=== PATIENT | male | born 1950 | race Caucasian/White ===

== ENCOUNTER 2018-11-03 17:39 | Emergency (ER) | payer OTHER, SELFPAY ==
--- NOTE | 2018-11-03 17:54 | DI.RAD.S_ITS ---
PROCEDURE: XR CHEST 1V INDICATIONS: chest pain TECHNIQUE: One view of the chest was acquired. COMPARISON: None. FINDINGS: Surgical changes and devices: None. Lungs and pleura: Left basilar infiltrate suspicious for pneumonia. No pleural effusions or pneumothorax. Mediastinum: Mediastinal contours appear normal. Heart size is normal. Bones and chest wall: No suspicious bony lesions. Overlying soft tissues appear unremarkable. Old right rib fractures are noted. Severe degeneration of the right shoulder. IMPRESSION: Left basilar infiltrate suspicious for pneumonia. Dictated by: Smita Grey M.D. on 11/03/2018 at 18:25 Approved by: Smita Grey M.D. on 11/03/2018 at 18:26
[2018-11-03 18:05] VITALS: BP 147/86; PULSE 69; RESP 18; TEMP 36.6; O2SAT 97; BMI 25.2
[2018-11-03 18:27] VITALS: BP 148/86; PULSE 68; RESP 12; O2SAT 98
--- NOTE | 2018-11-03 18:27 | ED_ITS ---
HPI - Chest Pain General Chief Complaint: Chest Pain Stated Complaint: Chest Pain Time Seen by Provider: 11/03/18 18:27 Source: patient Mode of arrival: ambulatory Limitations: no limitations History of Present Illness HPI narrative: Otherwise healthy 67-year-old male here for evaluation of palpitations. He states that for the past 4 days he has noticed a ?fluttering? sensation left side of his chest. Is not associated with chest pain or shortness of breath or lightheadedness or dizziness. States he has never felt this in the past. He states that it normally happens in the morning but then resolves as the day goes on. He states that today it has gone on throughout the day. Has not tried anything for prior to arrival. Was not having any symptoms at the time of my exam. Related Data Allergies Allergy/AdvReac Type Severity Reaction Status Date / Time No Known Drug Allergies Allergy Verified 11/03/18 18:05 Review of Systems Constitutional Denies fatigue, Denies fever(s) and Denies headache(s) ENT Ears, Nose, Mouth, and Throat: Denies vertigo, Denies dizziness and Denies headache(s) Cardiovascular Denies chest pain, Denies chest pain at rest, Denies chest pain with activity, Denies diaphoresis, Denies rapid heart rate, Denies pedal edema, Denies edema, Denies leg edema, Denies lightheadedness, Denies radiating jaw, neck or arm pain , Reports palpitations, Denies dyspnea and Denies slow heart rate Respiratory Denies dyspnea Gastrointestinal Gastrointestinal: Denies abdominal pain, Denies nausea and Denies vomiting Genitourinary Denies dysuria Musculoskeletal Denies myalgias and Denies arthralgias Integumentary/Breasts Denies lesions and Denies rash Neurologic Denies confusion, Denies vertigo, Denies dizziness and Denies headache(s) Psychiatric Denies confusion Endocrine Denies fatigue and Reports palpitations Hematologic/Lymphatic Comments: Not on anticoagulation PFSH Medical History Healthy adult (Acute) Surgical History No pertinent past surgical history (Acute) Social History Smoking Status: Never smoker Exam Initial Vital Signs Initial Vital Signs: Vital Signs Temperature 97.9 F 11/03/18 18:05 Pulse Rate 69 11/03/18 18:05 Respiratory Rate 18 11/03/18 18:05 Blood Pressure 147/86 H 11/03/18 18:05 Pulse Oximetry 97 11/03/18 18:05 Const General: cooperative, healthy appearing, comfortable, well developed, well groomed and No acute distress Orientation: alert, awake and oriented x3 HENMT Head: normal to inspection and normocephalic Resp Effort & Inspection: normal respiratory effort Auscultation: clear to auscultation bilaterally Cardio Rate: regular rate Rhythm: regular rhythm Heart Sounds: no murmurs Pulses: radial pulses present GI Inspection: non-distended Palpation: soft, No firm and No tender Skin Lesions: no lesions Rashes: no rashes Neuro General: alert, awake and oriented x3 Extrem General: normal to inspection and capillary refill normal Psych Appearance: grossly normal and well kempt Scores HEART Score Heart Score history: Slightly Suspicious Heart Score EKG: Normal Heart Score Age: > or = 65 years old Heart Score risk factors: No known risk factors Heart Score troponin: < or = to normal limit Heart Score Total: 2 Course Orders Ordered: ED Orders 11/03/18 17:54 XR chest 1V Stat EKG-12 Lead Stat 11/03/18 18:20 Complete Blood Count AUTO DIFF Stat Comprehensive Metabolic Panel Stat Lipase Stat Partial Thromboplastin Time Stat Prothrombin Time INR Stat Troponin & CK Cardiac Panel Stat Vital Signs - 8 hr 11/03/18 18:05 11/03/18 18:27 11/03/18 19:00 Temperature 97.9 F Pulse Rate 69 68 69 Respiratory Rate 18 12 14 Blood Pressure 147/86 H Blood Pressure [Left Arm] 148/86 H 153/93 H Pulse Oximetry 97 98 98 11/03/18 19:30 Temperature Pulse Rate 66 Respiratory Rate 14 Blood Pressure Blood Pressure [Left Arm] 136/88 Pulse Oximetry 98 MDM - Chest Pain Lab Data Attestation: I reviewed the patient's lab results. Result diagrams: 11/03/18 18:20 11/03/18 18:20 Lab Results 11/03/18 11/03/18 11/03/18 Range/Units 18:20 18:20 18:20 WBC 7.8 (4.5-11.0) X10^3/uL RBC 4.67 (4.5-5.9) X10^6/uL Hgb 14.4 (13.5-17.5) g/dL Hct 42.5 (41-53) % MCV 90.9 (80-100) fL MCH 30.7 (26-34) PG MCHC 33.8 (30-36) % RDW 14.0 (11.6-14.8) % Plt Count 309 (150-400) X10^3/uL Neut % (Auto) 41.8 L (50-75) % Lymph % (Auto) 40.3 H (25-40) % [place] % (Auto) 11.6 (3-14) % Eos % (Auto) 4.2 H (2-4) % Baso % (Auto) 2.1 H (0-2) % Neut # (Auto) 3300 (6499-1505) /uL PT 11.2 (10.1-12.7) SECONDS INR 1.0 (0.9-1.3) APTT 26 L (26.4-36.2) SECONDS Sodium 144 (137-145) mmol/L Potassium 3.9 (3.4-5.1) mmol/L Chloride 107 (98-107) mmol/L Carbon Dioxide 24 (22-32) mmol/L BUN 19 (9-20) mg/dL Creatinine 0.80 (0.66-1.25) mg/dL Estimated GFR > 60.0 (>60) mL/min BUN/Creatinine Ratio 23.8 H (6-22) Glucose 100 (80-110) mg/dL Calcium 9.5 (8.4-10.2) mg/dL Total Bilirubin 0.2 (0.2-1.3) mg/dL AST 32 (17-59) IU/L ALT 36 (21-72) IU/L Alkaline Phosphatase 53 (38-126) U/L Total Creatine Kinase 101 (55-170) U/L CK-MB (CK-2) 1.65 (<2.37) ng/mL CK-MB (CK-2) Rel Index 1.6 (1.5-5.0) % Troponin I < 0.012 (0.01-0.034) ng/mL Total Protein 7.3 (6.3-8.2) g/dL Albumin 4.3 (3.5-5.0) g/dL Globulin 3.0 (1.7-4.1) g/dL Albumin/Globulin Ratio 1.4 (1.0-2.8) Lipase 83 (23-300) U/L Imaging Data Chest x-ray: Radiologist's impression: [address] [address] XRay Report Signed Patient: Olaf Mandujano MR#: [id number] : 1950 Acct:[id number] Age/Sex: 67 / M Date of Service: 11/03/18 Loc: ED Accession Number: [id number] Procedure: XR chest 1V Ordering Provider: Kanika Bernal D.O. PROCEDURE: XR CHEST 1V INDICATIONS: chest pain TECHNIQUE: One view of the chest was acquired. COMPARISON: None. FINDINGS: Surgical changes and devices: None. Lungs and pleura: Left basilar infiltrate suspicious for pneumonia. No pleural effusions or pneumothorax. Mediastinum: Mediastinal contours appear normal. Heart size is normal. Bones and chest wall: No suspicious bony lesions. Overlying soft tissues appear unremarkable. Old right rib fractures are noted. Severe degeneration of the right shoulder. IMPRESSION: Left basilar infiltrate suspicious for pneumonia. Dictated by: Smita Grey M.D. on 11/03/2018 at 18:25 Approved by: Smita Grey M.D. on 11/03/2018 at 18:26 ECG Data Attestation: I personally reviewed and interpreted this ECG as follows: Prior ECG tracings: not available for review Interpretation: Sinus rhythm Ventricular rate is 72 Normal QRS Normal QTC Normal axis Occasional PVC MDM Narrative Medical decision making narrative: Patient was not having symptoms at the time of my evaluation. He states that he did have the symptoms when they did the EKG. The EKG does show PVCs. Patient is low risk for ACS with a heart score 2. Chest x-ray shows possibility of lower lobe pneumonia however clinically does not have pneumonia. He is afebrile. Is not coughing. Has clear lung exam. Will hold on any antibiotics for now. I do suspect that his symptoms are related to the PVCs. We did discuss return precautions. He expressed understanding and agreement with plan. Discharge Plan Departure Patient Disposition: Home Clinical Impression: Palpitations, PVC (premature ventricular contraction) Discharge Date/Time: 11/03/18 19:52 Interventions: ED Discharge Assessment Last Done: 11/03/18 19:51 Instructions: Premature Ventricular Beats, DI for Palpitations Activity Restrictions/Additional Instructions: Recommend that you follow up with your primary care doctor. Return to the emergency department for any new symptoms, palpitations are associated with chest pain, lightheadedness, shortness of breath.
[2018-11-03 18:33] LABS: Add Manual Diff / Slide Review NO; Basophils Percent Auto 2.1 % (0-2); Eosinophils Percent Auto 4.2 % (2-4); Hematocrit 42.5 % (41-53); Hemoglobin 14.4 g/dL (13.5-17.5); Lymphocytes Percent Auto 40.3 % (25-40); Mean Corpuscular HGB Conc 33.8 % (30-36); Mean Corpuscular Hemoglobin 30.7 PG (26-34); Mean Corpuscular Volume 90.9 fL (80-100); Monocytes Percent Auto 11.6 % (3-14); Neutrophils Absolute Auto 3300 /uL (1500-7000); Neutrophils Percent Auto 41.8 % (50-75); Platelet Count 309 X10^3/uL (150-400); Red Blood Cell Count 4.67 X10^6/uL (4.5-5.9); White Blood Cell Count 7.8 X10^3/uL (4.5-11.0)
[2018-11-03 18:39] LABS: Prothrombin Time 11.2 SECONDS (10.1-12.7)
[2018-11-03 18:42] LABS: PTT Partial Thromboplastin Tim 26 SECONDS (26.4-36.2)
[2018-11-03 18:44] LABS: Alanine Aminotransferase 36 IU/L (21-72); Albumin 4.3 g/dL (3.5-5.0); Albumin Globulin Ratio 1.4 (1.0-2.8); Alkaline Phosphatase 53 U/L (38-126); Aspartate Aminotransferase 32 IU/L (17-59); BUN Creatinine Ratio 23.8 (6-22); Bilirubin Total 0.2 mg/dL (0.2-1.3); Blood Urea Nitrogen 19 mg/dL (9-20); Calcium 9.5 mg/dL (8.4-10.2); Carbon Dioxide 24 mmol/L (22-32); Chloride 107 mmol/L (98-107); Creatine Kinase 101 U/L (55-170); Estimated Glomerular Filt Rate > 60.0 mL/min (>60); Glucose 100 mg/dL (80-110); HEMOLYSIS 21 (0-50); Lipase 83 U/L (23-300); Potassium 3.9 mmol/L (3.4-5.1); Sodium 144 mmol/L (137-145); Total Protein 7.3 g/dL (6.3-8.2)
[2018-11-03 18:59] LABS: CKMB % Relative Index 1.6 % (1.5-5.0); Creatine Kinase MB 1.65 ng/mL (<2.37)
[2018-11-03 19:00] VITALS: BP 153/93; PULSE 69; RESP 14; O2SAT 98
[2018-11-03 19:05] LABS: Troponin I < 0.012 ng/mL (0.01-0.034)
[2018-11-03 19:30] VITALS: BP 136/88; PULSE 66; RESP 14; O2SAT 98
== END 2018-11-03 19:52 | disposition home or self-care (01) ==
PROVIDERS: Emergency Medicine; Emergency Provider Emergency Medicine
DX: I49.3 Ventricular premature depolarization (principal); R00.2 Palpitations
CPT/HCPCS: 36591; 71045; 80053; 82550; 82553; 83690; 84484; 85025; 85610; 85730; 93005; 99283; 99285

== ENCOUNTER 2020-03-26 14:31 | Emergency (ER) | payer OTHER, SELFPAY ==
--- NOTE | 2020-03-26 14:38 | DI.RAD.S_ITS ---
PROCEDURE: XR CHEST 1V INDICATIONS: chest pain TECHNIQUE: One view of the chest was acquired. COMPARISON: [facility], CR, XR CHEST 1V, 11/03/2018, 18:25. FINDINGS: Surgical changes and devices: None. Lungs and pleura: Lungs are clear. No pleural effusions or pneumothorax. Mediastinum: Mediastinal contours appear normal. Heart size is normal. Bones and chest wall: No suspicious bony lesions. Overlying soft tissues appear unremarkable. IMPRESSION: No change from prior study in October of 2018, source of new chest pain is not found. Dictated by: Miller Wright M.D. on 03/26/2020 at 15:35 Approved by: Miller Wright M.D. on 03/26/2020 at 15:36
[2020-03-26 14:39] VITALS: BP 154/80; PULSE 58; RESP 16; TEMP 36.5; O2SAT 99
[2020-03-26 15:00] LABS: Add Manual Diff / Slide Review NO; Basophils Absolute Auto 100 /uL (0-100); Basophils Percent Auto 1.2 % (0-2); Eosinophils Absolute Auto 300 /uL (0-450); Eosinophils Percent Auto 3.7 % (2-4); Hematocrit 42.8 % (41-53); Hemoglobin 14.5 g/dL (13.5-17.5); Lymphocytes Absolute Auto 2800 /uL (1100-4500); Lymphocytes Percent Auto 37.8 % (25-40); Mean Corpuscular Volume 91.4 fL (80-100); Monocytes Absolute Auto 800 /uL (0-900); Monocytes Percent Auto 11.2 % (3-14); Neutrophils Absolute Auto 3400 /uL (1500-7000); Neutrophils Percent Auto 46.1 % (50-75); Platelet Count 301 X10^3/uL (150-400); Red Blood Cell Count 4.68 X10^6/uL (4.5-5.9); Red Cell Distribution Width 14.1 % (11.6-14.8); White Blood Cell Count 7.3 X10^3/uL (4.5-11.0)
[2020-03-26 15:01] VITALS: BP 154/80; PULSE 57; RESP 14; O2SAT 98
[2020-03-26 15:07] LABS: Alanine Aminotransferase 20 IU/L (<50); Albumin 4.5 g/dL (3.5-5.0); Albumin Globulin Ratio 1.5 (1.0-2.8); Alkaline Phosphatase 51 U/L (38-126); Aspartate Aminotransferase 26 IU/L (17-59); BUN Creatinine Ratio 23.7 (6-22); Bilirubin Total 0.4 mg/dL (0.2-1.3); Blood Urea Nitrogen 18 mg/dL (9-20); Calcium 9.6 mg/dL (8.4-10.2); Carbon Dioxide 24 mmol/L (22-32); Chloride 106 mmol/L (98-107); Creatine Kinase 56 U/L (55-170); Estimated Glomerular Filt Rate > 60.0 mL/min (>60); Globulin 3.1 g/dL (1.7-4.1); Glucose 92 mg/dL (80-110); HEMOLYSIS < 15 (0-50); Lipase 97 U/L (23-300); Potassium 4.5 mmol/L (3.4-5.1); Sodium 139 mmol/L (137-145); Total Protein 7.6 g/dL (6.3-8.2)
[2020-03-26 15:18] LABS: Troponin I < 0.012 ng/mL (0.01-0.034)
--- NOTE | 2020-03-26 15:24 | ED.CHESTPAIN ---
HPI - Chest Pain General Chief Complaint: Chest Pain Stated Complaint: Sent over by his DRRoberto Having tightness in chest Time Seen by Provider: 03/26/20 15:00 Source: patient Mode of arrival: Ambulatory Limitations: no limitations History of Present Illness HPI narrative: This is a 69-year-old male comes in with complaint of chest pressure/tightness. He has had symptoms 2 months also for the last couple weeks. He states he has not had any shortness of breath. He states when he exercises which includes going up hills and fairly intensive exercise he did not have any issue he has not any diaphoresis with these episodes. No fevers, no chills. He has felt nauseated at times and had some mild headache. He denies any vomiting. He denies any cough. He has had some mild nasal congestion which he describes as seasonal allergies. Patient has not had any swelling in his extremities. He states episodes tended her towards the end of the day, they get better as the night goes away when he takes his normal for panel all in the evening this seems to help. He did note that movement of his upper extremities or pushing on his chest makes it worse, he states that it does seem to sometimes radiate towards the left shoulder more. It does not go to his back or neck, no abdominal pain. He states symptoms will typically last for several hours, nothing seems to make it better or worse when it is present. He states he has been remodeling his house and started doing a pushup regimen in the last couple weeks. He does take a supplement for cholesterol with the red yeast rice as well as propranolol on aspirin 81 mg daily. He has had history of a pneumothorax, cholecystectomy and knee surgery. His stress test urine half ago with his semiconductors wafer breaker which was negative follows with his primary care. No tobacco, occasional alcohol no illicit. He contacted his primary care who told him to talk to his semiconductors wafer breaker he contacted them via phone who told him to come to the ER. Related Data Allergies Allergy/AdvReac Type Severity Reaction Status Date / Time No Known Drug Allergies Allergy Verified 11/03/18 18:05 Review of Systems Review of Systems ROS Unobtainable: All systems reviewed & are unremarkable except as noted in HPI and below Patient History Medical History (Updated 03/26/20 @ 15:43 by Kanika Bernal DO) Dyslipidemia (Acute) Healthy adult (Acute) Hypertension (Acute) Pneumothorax (Acute) Surgical History (Updated 03/26/20 @ 15:39 by Kanika Bernal DO) H/O knee surgery (Acute) Hx of cholecystectomy (Acute) No pertinent past surgical history (Acute) Social History Smoking Status: Never smoker Smoking Status: Never smoker alcohol intake frequency: a few times a week Substance Use Type: does not use Exam Narrative Exam Narrative: GENERAL: Alert and oriented x three, well-nourished male in no acute distress. HEENT: Head normocephalic, atraumatic, EOMI, pupils reactive, face symmetric, moist mucous membranes NECK: Supple, full range of motion CARDIOVASCULAR: Regular rate and rhythm without murmurs, rubs or gallops. Patient's chest pain is reproducible with palpation. No rash, skin changes or swelling. No ecchymosis. RESPIRATORY: Breath sounds equal bilaterally, no wheezes rales or rhonchi. ABDOMEN: Soft, nontender. Normoactive bowel sounds all 4 quadrants. No guarding or rebound, rigidity, no mass : No CVA tenderness EXTREMITIES: Normal range of motion, no clubbing or edema. Neurovascularly intact NEUROLOGICAL: Cranial nerves II through XII grossly intact. Moving all extremities SKIN: Warm, dry, no petechiae, no rashes or lesions. Initial Vital Signs Initial Vital Signs: Vital Signs Temperature 97.7 F 03/26/20 14:39 Pulse Rate 58 L 03/26/20 14:39 Respiratory Rate 16 03/26/20 14:39 Blood Pressure 154/80 H 03/26/20 14:39 Pulse Oximetry 99 03/26/20 14:39 Scores HEART Score Heart Score history: Slightly Suspicious Heart Score EKG: Normal Heart Score Age: > or = 65 years old Heart Score risk factors: 1-2 risk factors Heart Score troponin: < or = to normal limit Heart Score Total: 3 Course Orders Ordered: Discontinued Medications Aspirin (Aspirin Chew) 324 mg PO NOW ONE Stop: 03/26/20 14:39 Last Admin: 03/26/20 15:52 Dose: Not Given Documented by: MEDARDO Aspirin (Aspirin Chew) 234 mg PO NOW ONE Stop: 03/26/20 15:44 Last Admin: 03/26/20 17:00 Dose: 234 mg Documented by: KISHORE Vital Signs Vital signs: Vital Signs - 8 hr 03/26/20 14:39 03/26/20 15:01 03/26/20 15:34 Temperature 97.7 F Pulse Rate 58 L 57 L 56 L Respiratory Rate 16 14 12 Blood Pressure 154/80 H Blood Pressure [Right Arm] 154/80 H 139/78 Pulse Oximetry 99 98 97 03/26/20 16:00 Temperature Pulse Rate 55 L Respiratory Rate 12 Blood Pressure Blood Pressure [Right Arm] 117/76 Pulse Oximetry 96 MDM - Chest Pain Lab Data Attestation: I reviewed the patient's lab results. Result diagrams: 03/26/20 14:48 03/26/20 14:48 Labs: Lab Results 03/26/20 03/26/20 Range/Units 14:48 14:48 WBC 7.3 (4.5-11.0) X10^3/uL RBC 4.68 (4.5-5.9) X10^6/uL Hgb 14.5 (13.5-17.5) g/dL Hct 42.8 (41-53) % MCV 91.4 (80-100) fL MCH 31.0 (26-34) PG MCHC 34.0 (30-36) % RDW 14.1 (11.6-14.8) % Plt Count 301 (150-400) X10^3/uL Neut % (Auto) 46.1 L (50-75) % Lymph % (Auto) 37.8 (25-40) % [place] % (Auto) 11.2 (3-14) % Eos % (Auto) 3.7 (2-4) % Baso % (Auto) 1.2 (0-2) % Neut # (Auto) 3400 (4329-7407) /uL Lymph # (Auto) 2800 (9262-7905) /uL [place] # (Auto) 800 (0-900) /uL Eos # (Auto) 300 (0-450) /uL Baso # (Auto) 100 (0-100) /uL Sodium 139 (137-145) mmol/L Potassium 4.5 (3.4-5.1) mmol/L Chloride 106 (98-107) mmol/L Carbon Dioxide 24 (22-32) mmol/L BUN 18 (9-20) mg/dL Creatinine 0.76 (0.66-1.25) mg/dL Estimated GFR > 60.0 (>60) mL/min BUN/Creatinine Ratio 23.7 H (6-22) Glucose 92 (80-110) mg/dL Calcium 9.6 (8.4-10.2) mg/dL Total Bilirubin 0.4 (0.2-1.3) mg/dL AST 26 (17-59) IU/L ALT 20 (<50) IU/L Alkaline Phosphatase 51 (38-126) U/L Total Creatine Kinase 56 (55-170) U/L CK-MB (CK-2) TNP CK-MB (CK-2) Rel Index TNP Troponin I < 0.012 (0.01-0.034) ng/mL Total Protein 7.6 (6.3-8.2) g/dL Albumin 4.5 (3.5-5.0) g/dL Globulin 3.1 (1.7-4.1) g/dL Albumin/Globulin Ratio 1.5 (1.0-2.8) Lipase 97 (23-300) U/L Imaging Data Chest x-ray: Radiologist's Impression: [address] [address] XRay Report Signed Patient: Olaf Mandujano EMR#: [id number] : 1950cct:[id number] Age/Sex: 69 / MDate of Service: 03/26/20 Loc: ED Accession Number: [id number] Procedure: XR chest 1V Ordering Provider: Kanika Bernal D.O. PROCEDURE: XR CHEST 1V INDICATIONS: chest pain TECHNIQUE: One view of the chest was acquired. COMPARISON: Merged With [facility], , XR CHEST 1V, 11/03/2018, 18:25. FINDINGS: Surgical changes and devices: None. Lungs and pleura: Lungs are clear. No pleural effusions or pneumothorax. Mediastinum: Mediastinal contours appear normal. Heart size is normal. Bones and chest wall: No suspicious bony lesions. Overlying soft tissues appear unremarkable. IMPRESSION: No change from prior study in October of 2018, source of new chest pain is not found. Dictated by: Miller Wright M.D. on 03/26/2020 at 15:35 Approved by: Miller Wright M.D. on 03/26/2020 at 15:36 ECG Data Attestation: I personally reviewed and interpreted this ECG as follows: Prior ECG tracings: available for review Interpretation: This is a bradycardia rate of 58 NM 177 QRS of 94 and QTC of 430. No ST elevation/depression noted. Patient has prior EKG from 01/04/2018 which appears similar MDM Narrative Medical decision making narrative: Patient comes in with complaint of chest pressure/tightness which is been going on for couple weeks. He does relate that he recently started remodeling his house and doing a pushup regimen that palpation and movement do seem to worsen it he has noticed that it does seem to be more frequent in the end of the evening but states there is some radiation seems to be a little bit towards his left arm. He denies any shortness of breath, diaphoresis but has had nausea but not specifically linked to the chest pressure. He does follow with a semiconductors wafer breaker through [place] and has had a stress test urine a half ago. He does have some risk factors with dyslipidemia and hypertension. Discussed with patient and he was offered observation but defers today and plans for follow-up with semiconductors wafer breaker for possible stress testing. Discussed risks vs. benefits and that we cannot rule out a cardiac cause. We discussed they are doing outpatient stress testing locally I am unclear if they are at [facility] with the current pandemic but would suggest patient to get eval and stress testing. Patient's heart score is 3. He has some components of his symptoms that seem more musculoskeletal but does have some risk factors from a cardiac perspective. Discharge Plan Departure Patient Disposition: Home Clinical Impression: Chest pain Discharge Date/Time: 03/26/20 17:08 Instructions: DI for Atypical Chest Pain Activity Restrictions/Additional Instructions: Follow-up with your semiconductors wafer breaker, call for an appointment you may discuss over the phone they may wish to order outpatient stress testing either at [place] if available or locally. Continue home medications as prescribed. Return to the ER for fevers, new shortness of breath, chest pain or pressure continues, worsens or changes, lightheadedness or passing out, persistent vomiting, swelling of her extremities or other new or concerning symptoms
[2020-03-26 15:34] VITALS: BP 139/78; PULSE 56; RESP 12; O2SAT 97
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
[2020-03-26 16:00] VITALS: BP 117/76; PULSE 55; RESP 12; O2SAT 96
[2020-03-26 16:30] VITALS: BP 136/79; PULSE 53; RESP 13; O2SAT 98
[2020-03-26] MEDS: ASPIRIN 81 MG CHEW TAB 234 MG PO (17:00)
[2020-03-26 17:03] VITALS: BP 134/79; PULSE 54; RESP 14; O2SAT 98
== END 2020-03-26 17:08 | disposition home or self-care (01) ==
PROVIDERS: Emergency Provider Emergency Medicine
DX: R07.9 Chest pain, unspecified (principal); R00.1 Bradycardia, unspecified
CPT/HCPCS: 36415; 71045; 80053; 82550; 83690; 84484; 85025; 93005; 99284

== ENCOUNTER → 2021-01-26 09:24 | Outpatient (CLI) | payer MEDICARE, SELFPAY ==
[2021-01-26 11:24] LABS: COVID19 -Nasal RAPID Negative (Negative)
== END ==
PROVIDERS: Visit Provider Surgery
DX: Z20.822 Contact with and (suspected) exposure to COVID-19 (principal)
CPT/HCPCS: 87635; C9803

== ENCOUNTER 2021-01-27 06:42 | Day surgery (SDC) | payer MEDICARE, SELFPAY ==
[2021-01-27] VITALS (11 sets, daily range): BP systolic 100–124; BP diastolic 53–78; PULSE 51–57; RESP 10–17; TEMP 36.4–37; O2SAT 93–98; BMI 25.4
[2021-01-27] MEDS: SODIUM CHLORIDE 0.9% 1,000 ML 200 ML IV (07:30)
--- NOTE | 2021-01-27 08:10 | PM.HP.1 ---
History of Present Illness History of Present Illness Date Patient Seen: 01/27/21 Time Patient Seen: 08:10 Chief complaint: SDC Narrative: This is a 70-year-old man with personal history of colon polyps, and a family history of colon cancer in a secondary relative. He has had polyps found on several previous colonoscopies. His most recent was about 3 years ago, and he believes that a polyp was found but was considered low-grade at that time and was recommended to have a repeat colonoscopy in 3 years. He denies any melena, hematochezia, unexplained abdominal pain, unexplained weight loss. ROS positive for irregular heartbeat, sinus drainage, arthritis, reflux, prostatitis, vertigo. Thirteen system review is otherwise negative other than as mentioned below and in HPI. PE: GENERAL: Well groomed and cooperative. Appears stated age. Answers questions promptly and appropriately. Vital signs noted. HENT: Normocephalic, atraumatic. Hearing intact. EYES: Conjunctiva pink, sclera white, no periorbital swelling. CARDIOVASCULAR: Regular rate. No pedal edema. RESPIRATORY: Non-tachypneic, breathing comfortably on room air. GASTROINTESTINAL: Abdomen soft and non-distended GENITALURINARY: No flank tenderness. MUSCULOSKELETAL: Equal tone and mass bilaterally. SKIN: Warm, dry, soft, appropriate color for ethnicity. No other lesions, rashes, or wounds. NEURO: Alert and Oriented X 3. No gross sensory deficits, or cognitive issues. PSYCH: Appropriate affect and mood. Patient History Medical History Dyslipidemia Healthy adult Hypertension Pneumothorax Surgical History H/O knee surgery Hx of cholecystectomy No pertinent past surgical history Family & Social History Social History: household members spouse Tobacco & Substance use: Smoking Status Never smoker alcohol intake frequency a few times a week Substance Use Type does not use Meds Home Medications and Allergies Home Medications Medication Instructions Recorded Confirmed Type sodium,potassium,mag sulfates 17.5 177 ml PO DAILY #354 ml 12/22/20 01/27/21 Rx gram-3.13 gram-1.6 gram oral soln albuterol 1 mcg INHALATION DAILY 01/27/21 01/27/21 History aspirin 81 mg PO DAILY 01/27/21 01/27/21 History carisoprodol 350 mg PO DAILY 01/27/21 01/27/21 History fluticasone propionate [Flonase] 1 spray INTRANASAL DAILY 01/27/21 01/27/21 History loratadine [Claritin] 10 mg PO DAILY PRN 01/27/21 01/27/21 History meloxicam 15 mg PO DAILY 01/27/21 01/27/21 History omeprazole magnesium [Prilosec OTC] 20 mg PO DAILY 01/27/21 01/27/21 History propranolol 60 mg PO DAILY 01/27/21 01/27/21 History Allergies Allergy/AdvReac Type Severity Reaction Status Date / Time latex AdvReac Mild Rash Verified 01/27/21 07:34 Exam Vital Signs (past 8 hours): - 01/27/21 07:12 Temperature 97.8 F Pulse Rate 56 L Respiratory Rate 16 Blood Pressure 124/75 Pulse Oximetry 97 Oxygen Delivery Method Room Air Assessment & Plan Assessment and plan (1) Personal history of colonic polyps: Status: Acute Assessment & Plan narrative: Risks and benefits of screening colonoscopy and possible polypectomy were discussed with the patient including risk of bleeding, perforation, need for additional procedures, risks of anesthesia. The patient desires to proceed with the colonoscopy procedure. COVID-19 COVID-19 status: Negative Result date/Date tested (Pos, Neg/Pending): 01/26/21 Time Spent With Patient Time with patient: 15-24 minutes Quality VTE Deep Vein Thrombosis/Pulmonary Embolism Present on Admission: No
--- NOTE | 2021-01-27 08:15 | P.OP.ENDO_ITS ---
Operative Date/Time/Diagnoses Date of procedure: 01/27/21 Time of procedure: 08:15 Pre-op diagnosis: Personal history of colon polyps, due for surveillance Procedure & Clinicians Study performed: Colonoscopy Procedural sedation performed by the endoscopist Same procedure as scheduled: Yes Indications: Personal history of colon polyps, due for surveillance colonoscopy Surgeon: Chiara Murray Procedure Notes SCOAP/Timeout: Performed Procedure in detail: The patient was brought to the room and placed in left lateral decubitus position with all bony prominences padded. A time-out was performed and then the patient was given procedural sedation starting with [4] mg of Versed and [100] mcg of fentanyl. Vitals were monitored throughout the procedure and remained stable. Once adequately sedated, the procedure was begun. A rectal exam was performed revealing [no abnormalities]. The colonoscope was then introduced to the rectum and advanced to the cecum in the usual fashion. []The cecum was identified by the appendiceal orifice, the muco yovana tri-fold, and the ileocecal valve. The scope was then retracted while rotating side to side and examining each mucosal fold. No abnormalities were seen in the colon. No polyps. No evidence of diverticulosis was seen. [] At the conclusion of the procedure retroflexion was performed and [small grade 2-3 internal hemorrhoids without stigmata of bleeding were seen]. The scope was then withdrawn from the rectum the procedure was concluded. The patient tolerated the procedure well and was transferred to the PACU in stable condition. Scope withdrawal time: 8 Sedation minutes: 15 Findings: internal hemorrhoids Specimen(s): none sent Complications: none Impression: No polyps Post-procedure Recommendations: Colonscopy in 5 years (Due to personal history of polyps, and family history) Follow up: as needed Disposition: PACU
[2021-01-27] MEDS: fentaNYL 250 MCG/5 ML INJ IV (08:16)
[2021-01-27] MEDS: MIDAZOLAM 5 MG/5 ML VIAL IV (08:16)
== END 2021-01-27 09:40 | disposition home or self-care (01) ==
PROVIDERS: Referring Provider Surgery; Visit Provider Surgery
PROC: 0DJD8ZZ Inspection of Lower Intestinal Tract, Via Natural or Artificial Opening Endoscopic (ICD-10-PCS; CPT 45378; principal; 2021-01-27 07:45)
DX: Z12.11 Encounter for screening for malignant neoplasm of colon (principal); Z86.010 Personal history of colon polyps; I10 Essential (primary) hypertension; E78.5 Hyperlipidemia, unspecified; K64.1 Second degree hemorrhoids
CPT/HCPCS: G0105; 99152; J2250; J3010

== ENCOUNTER → 2022-03-02 11:57 | Outpatient (CLI) | payer MEDICARE, SELFPAY ==
--- NOTE | 2022-03-02 | DI.CT.S_ITS ---
PROCEDURE: CT SINUS SCREEN WO CON INDICATIONS: Chronic maxillary sinusitis TECHNIQUE: Noncontrast 3.0 mm axial images acquired from the frontal sinuses to the mid-sella, with coronal and sagittal reformats. For radiation dose reduction, the following was used: automated exposure control, adjustment of mA and/or kV according to patient size. COMPARISON: None. FINDINGS: Image quality: Excellent. Maxillary Sinuses: Moderate mucosal thickening is seen within the inferior right maxillary sinus. Minimal mucosal thickening is seen within the inferior left maxillary sinus. Mild demineralization can be seen of the medial kurtz of the maxillary sinuses. Ethmoid Air Cells: No bony remodeling or destruction. Sinuses are clear. Sphenoid Sinuses: No bony remodeling or destruction. Sinuses are clear. Frontal Sinuses: No bony remodeling or destruction. Sinuses are clear. Ostiomeatal Complexes: Ostiomeatal complexes are patent. No Kathy cells. Miscellaneous: Visualized intra-orbital contents are normal. No rich bullosa or paradoxical turbinate curvature. There is mild rightward nasal septal deviation. IMPRESSION: Focal maxillary sinus disease is seen, right worse than left. There is demineralization of the medial kurtz of the maxillary sinuses, which is consistent with chronic sinusitis. Dictated by: Ricky Dye M.D. on 03/02/2022 at 11:38 Approved by: Ricky Dye M.D. on 03/02/2022 at 11:39
== END ==
PROVIDERS: Referring Provider Otolaryngology; Visit Provider Otolaryngology
DX: J32.0 Chronic maxillary sinusitis (principal)
CPT/HCPCS: 70486

== ENCOUNTER → 2023-03-09 16:10 | Outpatient (CLI) | payer MEDICARE, SELFPAY ==
--- NOTE | 2023-03-09 16:12 | DI.MRI.S_ITS ---
PROCEDURE: MR LUMBAR SPINE WO CON INDICATIONS: Spinal stenosis, lumbar region TECHNIQUE: Noncontrast sagittal T1 spin echo and T2 fast echo, sagittal STIR, and T2 fast spin echo through the lumbar spine. In cases with scoliosis, additional coronal T2 fast spin echo may be performed. COMPARISON: [facility], CR, XR LUMBAR SPINE 2 OR 3 VIEWS, 08/11/2020, 15:00. [facility] [place], CR, XR LUMBAR SPINE WITH OBLIQUES PLUS FLEXION EXTENSION, 03/01/2023, 14:07. FINDINGS: Image quality: Diagnostic, with note made of motion artifact. Alignment and Curvature: Mild levoconvex scoliotic curvature is noted. No focal AP alignment abnormality is seen. Bone Marrow: Marrow is of normal overall signal. No acute vertebral body compression fractures. Spinal Cord: Conus medullaris terminates at the T12-L1 level. Visualized cord demonstrates normal signal and size. Paraspinous Soft Tissues: No paravertebral masses. An apparent 1.5 cm simple cyst can be seen along the medial aspect of the superior pole of the right kidney. T12-L1: Normal appearance. L1-L2: Hmuy-tf-psmrsysn loss of disc height and disc signal can be seen. Mild generalized disc bulge is seen. There is a superimposed central disc protrusion. There is a focal annular fissure seen posteriorly. Mild central canal narrowing is seen. L2-L3: The disc height is well-preserved. Loss of disc signal is seen at this level. Moderate generalized disc bulge is seen. There is a superimposed central disc protrusion. Mild facet joint hypertrophy is seen. Moderate bilateral neural foraminal narrowing is seen. Moderate central canal narrowing is seen. L3-L4: The disc height is well-preserved. Loss of disc signal is seen at this level. Moderate generalized disc bulge is seen. There is a superimposed central disc protrusion. Moderate facet joint hypertrophy is seen. Associated hypertrophy of the ligamentum flavum can be seen. At least moderate bilateral neural foraminal narrowing is seen. There is a minimal degree of compression seen upon the exiting L3 nerve roots. Moderate central canal narrowing is seen. L4-L5: The disc height is well-preserved. Loss of disc signal is seen at this level. Moderate facet joint hypertrophy is seen. Associated hypertrophy of the ligamentum flavum can be seen. There is moderate to severe bilateral neural foraminal narrowing seen, with an associated a degree of compression seen upon the exiting nerve roots. Moderate to severe central canal narrowing is seen, as on series 5, image 28. L5-S1: The disc height and disk signal are relatively well-preserved. Mild to moderate disc bulge is seen, which is eccentric to the right. Mild facet joint hypertrophy is seen. Moderate bilateral neural foraminal narrowing is seen. Mild central canal narrowing is seen. IMPRESSION: Multiple levels of lumbar spine degenerative change can be seen, which are overall worst at the L4-L5 level. Dictated by: Ricky Dye M.D. on 03/09/2023 at 16:50 Approved by: Ricky Dye M.D. on 03/09/2023 at 16:54
== END ==
PROVIDERS: Referring Provider Physical Medicine & Rehabilitation Pain Medicine; Visit Provider Physical Medicine & Rehabilitation Pain Medicine
DX: M48.062 Spinal stenosis, lumbar region with neurogenic claudication (principal); M47.816 Spondylosis without myelopathy or radiculopathy, lumbar region; M47.817 Spondylosis without myelopathy or radiculopathy, lumbosacral region
CPT/HCPCS: 72148

== ENCOUNTER 2023-10-19 07:56 | Emergency (ER) | payer MEDICARE, SELFPAY ==
[2023-10-19 07:59] VITALS: BP 102/65; PULSE 86; RESP 18; TEMP 36.6; O2SAT 95; BMI 24.5
--- NOTE | 2023-10-19 07:59 | ED.ABDPAIN ---
HPI - Abdominal Pain General Chief Complaint: Abdominal Pain Stated Complaint: possible appendicitis Time Seen by Provider: 10/19/23 07:59 History of Present Illness HPI narrative: 72-year-old male nonsmoker with a history of hypertension presents for evaluation of right lower quadrant pain. He states that he has been generally declining over the past day or 2 and had some generalized abdominal discomfort yesterday but since then the pain has settled into his right lower quadrant. He states the pain seems to come and go and there is no obvious provocation, palliation or radiation. In fact, he denies any pain currently but does state he has a poor appetite. He is had some loose stools over that time frame which is abnormal for him. He denies any urinary complaints such as dysuria, frequency or urgency. Related Data Home Medications Medication Instructions Recorded Confirmed aspirin 81 mg tablet 81 mg PO DAILY 01/27/21 10/18/23 carisoprodol 350 mg tablet 350 mg PO DAILY 01/27/21 10/18/23 meloxicam 15 mg tablet 15 mg PO DAILY 01/27/21 10/18/23 propranolol 60 mg tablet 60 mg PO DAILY 01/27/21 10/18/23 Allergies Allergy/AdvReac Type Severity Reaction Status Date / Time latex AdvReac Mild Rash Verified 10/19/23 08:03 Review of Systems Review of Systems Narrative: GENERAL: See HPI HEENT: Denies sinus pain, ear pain, sore throat, difficulty swallowing, dizziness. RESPIRATORY: Denies dyspnea, cough, wheezing, hemoptysis, sputum. CARDIOVASCULAR: Denies chest pain, palpitations, orthopnea, edema, GASTROINTESTINAL: See HPI : Denies dysuria, frequency, incontinence, hematuria, urinary retention. MUSCULOSKELETAL: denies weakness, joint pain, or bony pain SKIN: Denies rash, skin lesions, or other NEUROLOGIC: Denies weakness, headache, numbness, change in speech, confusion, seizures, incoordination. PSYCHIATRIC: No concerning psychosocial issues. 12 point review of systems is negative except for those stated above Patient History Medical History Pneumothorax Hypertension Dyslipidemia Healthy adult Surgical History H/O knee surgery Hx of cholecystectomy No pertinent past surgical history Social History household members: spouse Smoking Status: Never smoker Smoking Status: Never smoker alcohol intake frequency: a few times a week Substance Use Type: does not use Exam Narrative Exam Narrative: GENERAL: [72] year old patient appears stated age. Well-developed patient, in mild distress. HEAD: Atraumatic. Normocephalic. EYES: Pupils equal round and reactive. Extraocular motions intact. No scleral icterus. No injection or drainage. ENT: Nose without bleeding, purulent drainage. Throat without erythema, tonsillar hypertrophy or exudate. Airway patent. NECK: Trachea midline. Non tender CARDIOVASCULAR: Regular rate and rhythm without murmurs, gallops, or rubs. RESPIRATORY: Clear to auscultation. Breath sounds equal bilaterally. No wheezes, rales, or rhonchi. GASTROINTESTINAL: Abdomen soft, non-tender, nondistended. EXTREMITIES: No edema or joint tenderness. BACK: Nontender without deformity or crepitance. No flank tenderness. NEURO: AOx3. SKIN: No rash or erythema of visible areas Initial Vital Signs Initial Vital Signs: Vital Signs Temperature 97.8 F 10/19/23 07:59 Pulse Rate 86 10/19/23 07:59 Respiratory Rate 18 10/19/23 07:59 Blood Pressure 102/65 10/19/23 07:59 Pulse Oximetry 95 10/19/23 07:59 Oxygen Delivery Method Room Air 10/19/23 07:59 Course Orders Ordered: ED Orders 10/19/23 08:04 EKG-12 Lead Stat 10/19/23 08:12 CT abdomen pelvis w con Stat 10/19/23 08:13 Complete Blood Count AUTO DIFF Stat Comprehensive Metabolic Panel Stat Lipase Stat 10/19/23 09:00 Urinalysis and Microscopic Stat Ondansetron HCl (Ondansetron 4 Mg/2 Ml Inj) 4 mg IV NOW PRN PRN Reason: Nausea And Vomiting Vital Signs Vital signs: Vital Signs - 8 hr 10/19/23 07:59 10/19/23 08:29 10/19/23 08:30 Temperature 97.8 F Pulse Rate 86 70 Respiratory Rate 18 Blood Pressure 102/65 108/61 Pulse Oximetry 95 98 Oxygen Delivery Method Room Air 10/19/23 08:30 Temperature Pulse Rate 68 Respiratory Rate Blood Pressure Pulse Oximetry 98 Oxygen Delivery Method MDM - Abdominal Pain Lab Data 10/19/23 08:13 10/19/23 08:13 Labs: Lab Results 10/19/23 10/19/23 Range/Units 08:13 08:55 WBC 9.6 (4.5-11.0) X10^3/uL RBC 4.53 (4.5-5.9) X10^6/uL Hgb 13.9 (13.5-17.5) g/dL Hct 41.0 (41-53) % MCV 90.5 (80-100) fL MCH 30.7 (26-34) PG MCHC 33.9 (30-36) % RDW 14.3 (11.6-14.8) % Plt Count 351 (150-400) X10^3/uL Neut % (Auto) 70.3 (50-75) % Lymph % (Auto) 16.0 L (25-40) % [place] % (Auto) 11.0 (3-14) % Eos % (Auto) 2.0 (2-4) % Baso % (Auto) 0.7 (0-2) % Neut # (Auto) 6700 (3920-5142) /uL Lymph # (Auto) 1500 (1229-0531) /uL [place] # (Auto) 1000 H (0-900) /uL Eos # (Auto) 200 (0-450) /uL Baso # (Auto) 100 (0-100) /uL Sodium 138 (137-145) mmol/L Potassium 3.9 (3.4-5.1) mmol/L Chloride 107 (98-107) mmol/L Carbon Dioxide 26 (22-32) mmol/L BUN 17 (9-20) mg/dL Creatinine 0.85 (0.66-1.25) mg/dL Estimated GFR > 60 (>60) mL/min BUN/Creatinine Ratio 20.0 (6-22) Glucose 104 (80-110) mg/dL Calcium 9.5 (8.4-10.2) mg/dL Total Bilirubin 0.8 (0.2-1.3) mg/dL AST 29 (17-59) IU/L ALT 28 (<50) IU/L Alkaline Phosphatase 58 (38-126) U/L Total Protein 7.4 (6.3-8.2) g/dL Albumin 4.1 (3.5-5.0) g/dL Globulin 3.3 (1.7-4.1) g/dL Albumin/Globulin Ratio 1.2 (1.0-2.8) Lipase 67 (23-300) U/L Urine Color Yellow Urine Appearance Clear Urine pH 7.0 (4.5-8.0) Ur Specific [place] 1.010 (1.000-1.035) Urine Protein Negative (Negative) Urine Glucose (UA) Negative (Negative) g/dL Urine Ketones Negative (NEGATIVE) Urine Occult Blood Trace-intact (Negative) Urine Nitrate Negative (Negative) Urine Bilirubin Negative (NEGATIVE) Urine Urobilinogen 1.0 (0.2) E.U./dL Ur Leukocyte Esterase Negative (NEGATIVE) Urine RBC 0-1/hpf (0-5/HPF) Urine WBC None seen (0-5/HPF) Ur Squamous Epith Cells None seen (0-5/HPF) Amorphous Sediment 1+ Urine Bacteria None seen (None) Ur Culture Indicated? Cult not indicated MDM Narrative Medical decision making narrative: [72] year old patient presents with episodic right lower quadrant pain Multiple etiologies for patient's symptoms considered including, but not limited to: [Colitis versus appendicitis versus UTI versus kidney stone versus other] Prior Charts reviewed in our EMR Primary Historian: patient Labs reviewed and interpreted by myself: No significant abnormalities requiring intervention Imaging reviewed: CT of the abdomen and pelvis with IV contrast shows fat containing inguinal hernia, no evidence of appendicitis, kidney stone Patient's pain well controlled, no evidence of surgical diagnosis, inguinal hernia noted on imaging, no evidence clinically of incarceration or strangulation. Patient tolerating orals, no signs of sepsis Findings and discharge diagnosis discussed with patient/family followed by verbalization of understanding Return precautions discussed with patient/family whom verbalize understanding of diagnosis and plan Discharge Plan Departure Patient Disposition: Home Clinical Impression: Inguinal hernia Qualifiers: Obstruction and gangrene presence: without obstruction or gangrene Laterality: unilateral Recurrence: non-recurrent Qualified Code(s): K40.90 - Unilateral inguinal hernia, without obstruction or gangrene, not specified as recurrent Instructions: Groin Hernia -- Adult Activity Restrictions/Additional Instructions: *You have been diagnosed with [right inguinal hernia.] *What to do: *Please continue to take your regular medications as directed. *Please follow up with Dr. Martinez of [facility], call for an appointment. Let them know you were seen in the Emergency Department and that we ask that you be seen in follow up. We will electronically transmit a record of today's note *Return to Emergency Department if you should have any new, worsening or concerning symptoms, such as [fever greater than 101 F, shaking chills, worsening pain, persistent vomiting or other bothersome symptoms] Prescriptions: No Action carisoprodol 350 mg Tablet 350 mg PO DAILY meloxicam 15 mg tablet 15 mg PO DAILY propranolol 60 mg Tablet 60 mg PO DAILY aspirin 81 mg Tablet 81 mg PO DAILY Referrals: Judd Martinez MD [Physician] - Miscellaneous,MD Radha [Primary Care Provider] - Stand Alone Forms: Patient Portal/API
--- NOTE | 2023-10-19 08:12 | DI.CT.S_ITS ---
PROCEDURE: CT ABDOMEN PELVIS W CON INDICATIONS: right lower quad pain TECHNIQUE: After the administration of intravenous contrast, axial sections acquired from the lung bases to the pubic symphysis. Coronal and sagittal reformats were performed. For radiation dose reduction, the following was used: automated exposure control, adjustment of mA and/or kV according to patient size. COMPARISON: None. FINDINGS: Image quality: Excellent. Lung bases: Unremarkable. Heart: No significant findings. ABDOMEN: Liver: Unremarkable. Gallbladder: Surgically absent. Biliary ducts: Unremarkable. Pancreas: Unremarkable. Spleen: Unremarkable. Adrenal Glands: Unremarkable. Kidneys and Ureters: Unremarkable. Stomach and Bowel: Stomach, small bowel loops, and colon are unremarkable. Appendix is surgically absent. Peritoneum: No abnormal intraperitoneal fluid. No free air. Ventral Wall: No hernias. Abdominal Nodes: No retroperitoneal or mesenteric adenopathy by size criteria. Vessels: Aorta and inferior vena cava are normal in size. PELVIS: Pelvic Organs: Unremarkable. Bladder: Unremarkable. Pelvic Nodes: No enlarged lymph nodes. Miscellaneous: Fat containing right inguinal hernia. Bones: Lumbar degenerative change. Canal stenosis at L4-L5. No lytic or blastic bony lesions. No compression fractures. IMPRESSION: 1. No acute abdominal process. 2. Remote cholecystectomy and appendectomy. 3. Fat containing right inguinal hernia. 4. Incidental note made of canal stenosis at L4-L5. Dictated by: Tadeo Novak M.D. on 10/19/2023 at 8:56 Approved by: Tadeo Novak M.D. on 10/19/2023 at 8:59
[2023-10-19 08:19] LABS: Add Manual Diff / Slide Review NO; Basophils Absolute Auto 100 /uL (0-100); Basophils Percent Auto 0.7 % (0-2); Eosinophils Absolute Auto 200 /uL (0-450); Hemoglobin 13.9 g/dL (13.5-17.5); Lymphocytes Absolute Auto 1500 /uL (1100-4500); Mean Corpuscular HGB Conc 33.9 % (30-36); Mean Corpuscular Hemoglobin 30.7 PG (26-34); Mean Corpuscular Volume 90.5 fL (80-100); Monocytes Absolute Auto 1000 /uL (0-900); Neutrophils Absolute Auto 6700 /uL (1500-7000); Neutrophils Percent Auto 70.3 % (50-75); Platelet Count 351 X10^3/uL (150-400); Red Blood Cell Count 4.53 X10^6/uL (4.5-5.9); Red Cell Distribution Width 14.3 % (11.6-14.8); White Blood Cell Count 9.6 X10^3/uL (4.5-11.0)
--- NOTE | 2023-10-19 08:22 | PC.NURSE ---
Pt came to the emergency dept today because he has been having diarrhea and abd pain for the past 11 days. At this time, the pt is not experiencing pain but he states that he has pain when he tries to lay flat. He has also been having off-and-on diarrhea that only lasts about a day at a time. Pt states that the pain started behind his belly button and it has now moved to his RLQ and he is concerned for appendicitis. Abd soft and non-tender to palpation. Denies n/v. Pt a&ox4. [employer] intact VS WNL.
[2023-10-19 08:29] VITALS: PULSE 70; O2SAT 98
[2023-10-19 08:30] VITALS: BP 108/61; PULSE 68; O2SAT 98
[2023-10-19 08:32] LABS: Alanine Aminotransferase 28 IU/L (<50); Albumin 4.1 g/dL (3.5-5.0); Albumin Globulin Ratio 1.2 (1.0-2.8); Alkaline Phosphatase 58 U/L (38-126); Aspartate Aminotransferase 29 IU/L (17-59); Bilirubin Total 0.8 mg/dL (0.2-1.3); Blood Urea Nitrogen 17 mg/dL (9-20); Calcium 9.5 mg/dL (8.4-10.2); Carbon Dioxide 26 mmol/L (22-32); Chloride 107 mmol/L (98-107); Estimated Glomerular Filt Rate > 60 mL/min (>60); Globulin 3.3 g/dL (1.7-4.1); Glucose 104 mg/dL (80-110); HEMOLYSIS < 15 (0-50); Lipase 67 U/L (23-300); Potassium 3.9 mmol/L (3.4-5.1); Sodium 138 mmol/L (137-145); Total Protein 7.4 g/dL (6.3-8.2)
[2023-10-19 09:25] LABS: Appearance Urine UA CLEAR; Bilirubin Urine UA NEGATIVE (NEGATIVE); Color Urine UA YELLOW; Glucose Urine UA NEGATIVE (Negative); Ketones Urine UA NEGATIVE (NEGATIVE); Leukocyte Esterase Urine UA NEGATIVE (NEGATIVE); Nitrite Urine UA NEGATIVE (Negative); Occult Blood Urine UA TRACE-INTACT (Negative); Protein Urine UA NEGATIVE (Negative)
[2023-10-19 09:32] LABS: Amorphous Sediment Urine 1+; Bacteria Urine None Seen; Culture Indicated Urine Cult Not Indicated; RBC Urine 0-1/HPF (0-5/HPF); Squamous Epithelial Cell Urine None Seen (0-5/HPF); WBC Urine None Seen (0-5/HPF)
[2023-10-19 10:10] VITALS: BP 143/65; PULSE 73; RESP 20; TEMP 36.4; O2SAT 99
== END 2023-10-19 10:00 | disposition home or self-care (01) ==
PROVIDERS: Emergency Provider Emergency Medicine
DX: K40.90 Unilateral inguinal hernia, without obstruction or gangrene, not specified as recurrent (principal); I10 Essential (primary) hypertension; R19.5 Other fecal abnormalities
CPT/HCPCS: 74177; 80053; 81001; 83690; 85025; 87045; 87177; 87329; 87899; 93005; 99281; Q9967

== ENCOUNTER → 2023-10-19 13:02 | Outpatient (CLI) | payer MEDICARE, SELFPAY | PROVIDERS: PCP Family Medicine; Referring Provider Physician Assistant; Visit Provider Physician Assistant | DX: R19.5 Other fecal abnormalities (principal) | CPT/HCPCS: 87045; 87177; 87329; 87899 ==

== ENCOUNTER → 2023-11-29 09:19 | Outpatient (CLI) | payer MEDICARE, SELFPAY ==
[2023-11-30 10:53] LABS: PSA Free % 11.4 % (.); PSA, Total 2.9 ng/mL (0.0-4.0)
== END ==
PROVIDERS: PCP Family Medicine; Referring Provider Specialist; Visit Provider Specialist
DX: N40.0 Benign prostatic hyperplasia without lower urinary tract symptoms (principal); R97.20 Elevated prostate specific antigen [PSA]
CPT/HCPCS: 36415; 51798; 81002; 84153; 84154; 99215

== ENCOUNTER → 2024-01-09 09:24 | Outpatient (CLI) | payer MEDICARE, SELFPAY ==
[2024-01-09 11:06] LABS: Alanine Aminotransferase 22 IU/L (<50); Albumin 4.1 g/dL (3.5-5.0); Albumin Globulin Ratio 1.4 (1.0-2.8); Alkaline Phosphatase 66 U/L (38-126); Aspartate Aminotransferase 25 IU/L (17-59); Bilirubin Total 0.7 mg/dL (0.2-1.3); Bilirubin Unconjugated 0.5 mg/dL (0.0-1.1); Cholesterol 200 mg/dL (140-199); HDL Cholesterol 43 mg/dL (40-60); HEMOLYSIS < 15 (0-50); LDL Cholesterol Calculated 133 mg/dL (<100); Total Protein 7.1 g/dL (6.3-8.2); Triglycerides 122 mg/dL (35-150)
== END ==
PROVIDERS: PCP Family Medicine; Referring Provider Pharmacist; Visit Provider Pharmacist
DX: I25.10 Atherosclerotic heart disease of native coronary artery without angina pectoris (principal); I25.84 Coronary atherosclerosis due to calcified coronary lesion; E78.00 Pure hypercholesterolemia, unspecified
CPT/HCPCS: 36415; 80061; 80076

== ENCOUNTER → 2024-05-21 15:56 | Outpatient (CLI) | payer MEDICARE, SELFPAY ==
[2024-05-21 18:34] LABS: Prostate Specific Antigen 4.55 ng/mL (0.10-4.00)
[2024-05-21 18:55] LABS: Cholesterol 188 mg/dL (140-199); HDL Cholesterol 48 mg/dL (40-60); LDL Cholesterol Calculated 117 mg/dL (<100); Triglycerides 113 mg/dL (35-150)
== END ==
LOC: LAB 15:58
PROVIDERS: PCP Family Medicine; Referring Provider Specialist; Visit Provider Pharmacist
DX: E78.00 Pure hypercholesterolemia, unspecified (principal); I25.10 Atherosclerotic heart disease of native coronary artery without angina pectoris; I25.84 Coronary atherosclerosis due to calcified coronary lesion; Z87.898 Personal history of other specified conditions
CPT/HCPCS: 36415; 80061; 84153

== ENCOUNTER 2024-08-13 13:17 | Day surgery (SDC) | payer MEDICARE, SELFPAY ==
--- NOTE | 2024-08-13 | PATH_ITS ---
[facility] Accession Number: [id number] No. of containers..05 Tissue . 01 Material submitted: . PART A: duodenum - DUODENUM PART B: gastrointestinal site - ANTRUM PART C: colon - RIGHT COLON PART D: colon - TRANSVERSE COLON PART E: colon - LEFT COLON . 01 Diagnosis: A. DUODENDUM, BIOPSY: Duodenal mucosa with no diagnostic abnormality. Negative for active inflammation, features of sprue, dysplasia, or malignancy. . B. GASTRIC ANTRUM, BIOPSY: Gastric antral mucosa with mild chronic inflammation and intestinal metaplasia. Intestinal metaplasia present in two of four biopsy fragments. Negative for Helicobacter organisms by immunohistochemistry. Negative for dysplasia or malignancy. . C. RIGHT COLON, BIOPSY: Colonic mucosa with no diagnostic abnormality. Negative for active, chronic, and microscopic colitis. Negative for dysplasia and malignancy. . D. TRANSVERSE COLON, BIOPSY: Colonic mucosa with no diagnostic abnormality. Negative for active, chronic, and microscopic colitis. Negative for dysplasia and malignancy. . E. LEFT COLON, BIOPSY: Colonic mucosa with no diagnostic abnormality. Negative for active, chronic, and microscopic colitis. Negative for dysplasia and malignancy. . [facility] 08/16/2024 1237 Local . 01 Electronically signed: . Anthony Charles MD, PhD, Pathologist NPI- [id number] . 01 Gross description: . Part A: DUODENUM: Received in formalin are 3 fragment(s) of yuen, soft tissue measuring 0.1 x 0.1 x 0.1 cm to 0.3 x 0.3 x 0.3 cm submitted entirely in 1 cassette(s) Part B: ANTRUM: Received in formalin are 4 fragment(s) of yuen, soft tissue measuring 0.1 x 0.1 x 0.1 cm to 0.6 x 0.2 x 0.2 cm submitted entirely in 1 cassette(s) Part C: RIGHT COLON: Received in formalin are 4 fragment(s) of yuen, soft tissue measuring 0.1 x 0.1 x 0.1 cm to 0.4 x 0.2 x 0.2 cm submitted entirely in 1 cassette(s) Part D: TRANSVERSE COLON: Received in formalin are 2 fragment(s) of yuen, soft tissue measuring 0.2 x 0.2 x 0.2 cm to 0.4 x 0.3 x 0.2 cm submitted entirely in 1 cassette(s) Part E: LEFT COLON: Received in formalin are 3 fragment(s) of yuen, soft tissue measuring 0.1 x 0.1 x 0.1 cm to 0.4 x 0.2 x 0.2 cm submitted entirely in 1 cassette(s) /ARTURO 08/14/2024 0139 Local . 01 Microscopic: . B. An immunohistochemical stain was performed to evaluate for Helicobacter organisms and is negative. The control stain showed appropriate reactivity. . * This test was developed and its performance characteristics determined by [employer]. It has not been cleared or approved by the U.S. Food and Drug Administration. The FDA has determined that such clearance or approval is not necessary. This test is used for clinical purposes. It should not be regarded as investigational or for research. . 01 Pathologist provided ICD-10: K31.A0, R19.8 . 01 CPT . 627595, 646373, 485652, 082728, 997162, L51958 Specimen Comment: A courtesy copy of this report has been sent to [phone] Performed at: [address] [address], [place], [place] [id number] MD Arjun Nettles MD Phone: [phone]
[2024-08-13 13:45] VITALS: BP 131/74; PULSE 77; RESP 16; O2SAT 99
[2024-08-13] MEDS: LACTATED RINGERS 1,000 ML 150 ML IV (13:49)
--- NOTE | 2024-08-13 13:49 | P.HP_ITS ---
History of Present Illness History of Present Illness Date Patient Seen: 08/13/24 Time Patient Seen: 13:49 Chief complaint: SDC Narrative: Rafal is a 73-year-old man with chronic diarrhea and abdominal pain. See [place] office note for details. He recently underwent a 2 week trial of a proton pump inhibitor with good results in his level of abdominal pain [facility] Medical History (Updated 08/13/24 @ 13:51 by Judd Martinez MD) BPH loc w/o ur obs/LUTS History of elevated PSA BPH loc w/o ur obs/LUTS Pneumothorax Hypertension Dyslipidemia Healthy adult Surgical History (Updated 08/13/24 @ 13:29 by Temitope Barraza RN) Hx of hernia repair (~1991) H/O knee surgery Hx of cholecystectomy No pertinent past surgical history Social History marital status: household members: spouse lives independently: Yes occupational status: employed Smoking Status: Never smoker alcohol intake: current substance use type: does not use Meds Home Medications and Allergies Home Medications Medication Instructions Recorded Confirmed Type azelastine hcl- budesonide 2 squirt intranasal DAILY 10/26/23 08/13/24 History acetaminophen 325 mg capsule 325 mg PO ONCE PRN Pain (Scale 11/29/23 08/13/24 History Score 1-3) calcium carbonate (Antacid 200 mg PO BID 11/29/23 08/13/24 History (calcium carbonate)) carisoprodol 350 mg tablet 350 mg PO BEDTIME 11/29/23 08/13/24 History aspirin 81 mg tablet,delayed 81 mg PO DAILY 08/13/24 08/13/24 History release Allergies Allergy/AdvReac Type Severity Reaction Status Date / Time latex AdvReac Mild Rash Verified 07/09/24 11:05 Exam Vital Signs (past 8 hours): - 08/13/24 13:45 Pulse Rate 77 Respiratory Rate 16 Blood Pressure 131/74 Pulse Oximetry 99 Oxygen Delivery Method Room Air Oxygen Delivery Method Room Air Const General: healthy appearing Assessment & Plan Assessment and plan (1) Personal history of colonic polyps: Status: Acute (2) Abdominal pain: Qualifiers: Abdominal location: unspecified location Qualified Code(s): R10.9 - Unspecified abdominal pain Status: Acute (3) Chronic diarrhea: Status: Acute Plan We reviewed the risks and benefits of EGD and colonoscopy and he would like to proceed. Time-Based Coding :: [TOTAL MINUTES] spent with patient and on the chart (including review of chart, obtaining history, exam, reviewing outside data, placing orders, documenting exam and treatment plan, and counseling patient) on [DATE].
[2024-08-13 14:51] VITALS: BP 94/51; PULSE 66; RESP 22; TEMP 36.1; O2SAT 95
--- NOTE | 2024-08-13 14:51 | PM.OP.EC ---
Operative Date/Time/Diagnoses Date of procedure: 08/13/24 Time of procedure: 14:51 Pre-op diagnosis: Chronic diarrhea and abdominal pain Post-op diagnosis: same Procedure & Clinicians Study performed: EGD and colonoscopy Same procedure as scheduled: Yes Surgeon: Judd Martinez Procedure Notes Procedure in detail: Surgeon: Judd Martinez MD Anesthesia: Emily Membreno CRNA Procedure in detail: A timeout was performed. A bite blocked was placed and monitors were attached to the patient. The patient was positioned in the left lateral decubitus position. Sedation was administered. Once the patient was sedated the endoscope was inserted through the bite block and passed through the esophagus and stomach and into the duodenum. No abnormalities were seen. Random biopsies were taken from the duodenal mucosa with cold forceps. We then withdrew the scope into the stomach. No abnormalities were identified. Random biopsies were taken from the antrum with cold forceps. The endoscope was retroflexed and no abnormalities were seen. The endoscope was straightned and withdrawn into the esophagus. No abnormalities were seen. EGD findings: Grossly normal esophagus, stomach and duodenal Next we repositioned the patient for a colonoscopy. A digital rectal exam was performed and was normal. The colonoscope was inserted and advanced to the cecum. The appendiceal orifice was identified and photographed. The scope was slowly withdrawn over greater than 6 minutes. No abnormalities were identified. Random biopsies were taken with cold forceps from the right colon, transverse colon and left colon. The scope was retroflexed in the rectum and no further abnormalities were identified. Colonoscopy findings: Grossly normal colon Total procedural EBL: 5 mL Scope withdrawal time: 8 minutes Sedation minutes: 22 minutes Post-procedure Disposition: PACU
[2024-08-13 14:52] VITALS: BP 94/51; PULSE 68; RESP 94; TEMP 36.1; O2SAT 14
[2024-08-13 14:56] VITALS: BP 97/57; PULSE 68; RESP 18; O2SAT 96
[2024-08-13 14:57] VITALS: BP 97/57; PULSE 78; RESP 10; O2SAT 95
[2024-08-13 15:01] VITALS: BP 95/55; PULSE 66; RESP 22; O2SAT 96
== END 2024-08-13 15:08 | disposition home or self-care (01) ==
PROVIDERS: PCP Family Medicine; Referring Provider Surgery; Visit Provider Surgery
PROC: 0DJ08ZZ Inspection of Upper Intestinal Tract, Via Natural or Artificial Opening Endoscopic (ICD-10-PCS; CPT 43235; principal; 2024-08-13 14:30)
PROC: 0DJD8ZZ Inspection of Lower Intestinal Tract, Via Natural or Artificial Opening Endoscopic (ICD-10-PCS; CPT 45378; 2024-08-13 14:30)
DX: R19.7 Diarrhea, unspecified (principal); K29.50 Unspecified chronic gastritis without bleeding
CPT/HCPCS: 45378; 43239; J2704

== ENCOUNTER → 2024-08-15 15:43 | Outpatient (CLI) | payer MEDICARE, SELFPAY | PROVIDERS: PCP Family Medicine; Referring Provider Urology; Visit Provider Urology | DX: N40.0 Benign prostatic hyperplasia without lower urinary tract symptoms (principal); Z87.898 Personal history of other specified conditions | CPT/HCPCS: 36415; 84153; 84154 ==

== ENCOUNTER → 2024-08-29 10:08 | Outpatient (CLI) | payer MEDICARE, SELFPAY ==
[2024-08-29 11:01] LABS: Estimated Glomerular Filt Rate > 60 mL/min (>60)
== END ==
PROVIDERS: PCP Family Medicine; Referring Provider Urology; Visit Provider Urology
DX: R97.20 Elevated prostate specific antigen [PSA] (principal)
CPT/HCPCS: 36415; 82565

== ENCOUNTER → 2024-09-11 13:39 | Outpatient (CLI) | payer MEDICARE, SELFPAY ==
--- NOTE | 2024-09-11 13:40 | DI.MRI.S_ITS ---
PROCEDURE: MR PELVIC PROSTATE PROTOCOL INDICATIONS: 73 y/o M w/ elevated PSA, please eval prostate TECHNIQUE: Coronal HASTE, axial T1 FSE with fat saturation, 3-plane nonbreath-hold T2 FSE. After the administration of contrast, dynamic axial, delayed axial and coronal VIBE or 2-D FLASH with fat saturation through the pelvis. Diffusion weighted imaging and ADC was performed. COMPARISON: None. FINDINGS: Image quality: Diffusion weighted and dynamic contrast enhanced images are diagnostic. Prostate: Gland size is 4.6 x 3.9 x 4.4 cm; ellipsoid gland volume is 41 mL. PS of density of 0.12. Lesion 1: Location: Right medial peripheral zone, apex, on axial series 4, image 15 and coronal series 5, image 15. Size: 1.0 x 0.7 cm. T2W signal: Hypointense. DWI signal: Markedly hyperintense. ADC signal: Markedly hypointense. Enhancement: Yes. Extracapsular extension: No. No neurovascular involvement. PI-RADS score: 4 Genitourinary system: Trabeculated bladder wall. Distal ureters are non distended. Bowel and peritoneum: No pathologic free pelvic fluid. Inferior colon and small bowel loops are normal in caliber. Colonic diverticulosis without evidence of diverticulitis. Nodes and vessels: No pelvic or inguinal adenopathy by size criteria. Iliac vessels are normal in caliber. Soft tissues: No inguinal hernias. Bones: Marrow demonstrates normal overall signal, without lesions to suggest metastases. IMPRESSION: PI-RADS 4 lesion in the peripheral zone of the prostate apex. No definite evidence of extraprostatic extension. No pelvic lymphadenopathy by size criteria. No aggressive osseous abnormality. Dictated by: Keith Daniels M.D. on 09/11/2024 at 15:02 Approved by: Keith Daniels M.D. on 09/11/2024 at 15:10
== END ==
PROVIDERS: PCP Family Medicine; Referring Provider Urology; Visit Provider Urology
DX: N42.9 Disorder of prostate, unspecified (principal); R97.20 Elevated prostate specific antigen [PSA]; N32.89 Other specified disorders of bladder; K57.90 Diverticulosis of intestine, part unspecified, without perforation or abscess without bleeding
CPT/HCPCS: 72197; A9579

== ENCOUNTER → 2024-10-01 09:33 | Outpatient (CLI) | payer MEDICARE, SELFPAY ==
[2024-10-01 10:35] LABS: Cholesterol 204 mg/dL (140-199); HDL Cholesterol 61 mg/dL (40-60); LDL Cholesterol Calculated 118 mg/dL (<100); Triglycerides 126 mg/dL (35-150)
== END ==
PROVIDERS: PCP Family Medicine; Referring Provider Family Medicine; Visit Provider Family Medicine
DX: E78.00 Pure hypercholesterolemia, unspecified (principal)
CPT/HCPCS: 36415; 80061

== ENCOUNTER → 2025-01-14 09:38 | Outpatient (CLI) | payer MEDICARE, SELFPAY ==
[2025-01-14 10:32] LABS: Cholesterol 183 mg/dL (140-199); HDL Cholesterol 45 mg/dL (40-60); LDL Cholesterol Calculated 127 mg/dL (<100); Triglycerides 57 mg/dL (35-150)
[2025-01-14 11:14] LABS: Prostate Specific Antigen 3.87 ng/mL (0.10-4.00)
== END ==
PROVIDERS: Urology; PCP Family Medicine; Referring Provider Pharmacist; Visit Provider Pharmacist
DX: C61 Malignant neoplasm of prostate (principal); E78.00 Pure hypercholesterolemia, unspecified
CPT/HCPCS: 36415; 80061; 84153

== ENCOUNTER → 2025-04-18 11:03 | Outpatient (CLI) | payer MEDICARE, SELFPAY ==
[2025-04-18 12:37] LABS: Prostate Specific Antigen 4.37 ng/mL (0.10-4.00)
== END ==
PROVIDERS: PCP Family Medicine; Referring Provider Urology; Visit Provider Urology
DX: C61 Malignant neoplasm of prostate (principal)
CPT/HCPCS: 36415; 84153

== ENCOUNTER → 2025-04-19 09:11 | Outpatient (CLI) | payer MEDICARE, SELFPAY ==
[2025-04-19 10:32] LABS: Alanine Aminotransferase 27 IU/L (<50); Albumin Globulin Ratio 1.7 (1.0-2.8); Alkaline Phosphatase 67 U/L (38-126); Aspartate Aminotransferase 30 IU/L (17-59); Bilirubin Total 0.8 mg/dL (0.2-1.3); Bilirubin Unconjugated 0.5 mg/dL (0.0-1.1); Cholesterol 133 mg/dL (140-199); Globulin 2.3 g/dL (1.7-4.1); HDL Cholesterol 56 mg/dL (40-60); HEMOLYSIS < 15 (0-50); LDL Cholesterol Calculated 68 mg/dL (<100); Total Protein 6.3 g/dL (6.3-8.2); Triglycerides 45 mg/dL (35-150)
== END ==
PROVIDERS: PCP Family Medicine; Referring Provider Pharmacist; Visit Provider Pharmacist
DX: E78.00 Pure hypercholesterolemia, unspecified (principal); I25.10 Atherosclerotic heart disease of native coronary artery without angina pectoris
CPT/HCPCS: 36415; 80061; 80076

== ENCOUNTER 2025-08-15 09:27 | Day surgery (SDC) | payer MEDICARE, SELFPAY ==
--- NOTE | 2025-08-15 | PATH_ITS ---
[facility] Accession Number: [id number] No. of containers..03 Tissue . 01 Material submitted: . PART A: duodenum - DUODENUM PART B: gastrointestinal site - ANTRUM PART C: gastrointestinal site - GASTRIC, BODY . 01 Diagnosis: Part A: DUODENUM: Duodenal mucosa with no diagnostic alterations. No active inflammation and no evidence of celiac disease. . Part B: ANTRUM: Gastric mucosa with mild chronic inflammation and intestinal metaplasia. No Helicobacter organisms identified. No dysplasia or malignancy identified. . Part C: GASTRIC, BODY: Gastric mucosa with minimal chronic inflammation. No Helicobacter organisms identified. No intestinal metaplasia, dysplasia, or malignancy identified. [facility] 08/26/2025 1150 Local . 01 Comment: Parts B, C: An immunohistochemical stain was performed to evaluate for Helicobacter organisms and is negative. The control stains appropriately. * This test was developed and the performance characteristics were validated [facility]. It has not been cleared or approved by the Food and Drug Administration. . 01 Electronically signed: . Arjun Nettles MD, Pathologist NPI- [id number] . 01 Gross description: . . . . Received three formalin filled containers, each labeled with the patient's name. . A. In a container labeled duodenum are two fragments of yuen, soft tissue which range in size from 0.2 x 0.2 x 0.2 cm to 0.3 x 0.3 x 0.2 cm. All fragments are totally submitted in cassette A. . B. In a container labeled antrum is one fragment of yuen, soft tissue which measures 0.4 x 0.2 x 0.2 cm. The specimen is totally submitted in cassette B. . C. In a container labeled gastric body are two fragments of yuen, soft tissue which range in size from 0.3 x 0.2 x 0.2 cm to 0.4 x 0.2 x 0.2 cm. All fragments are totally submitted in cassette C. ([facility] [place]:[id number]) /MRV 08/26/2025 1150 Local . 01 Pathologist provided ICD-10: K29.50, K31.A0 . 01 CPT . 631638, 798438, 621512, [id number] Specimen Comment: A courtesy copy of this report has been sent to [phone] Performed at: [address] [id number] MD Arjun Nettles MD Phone: [phone]
--- NOTE | 2025-08-15 09:42 | PM.HP.IH.1 ---
History of Present Illness History of Present Illness Date Patient Seen: 08/15/25 Time Patient Seen: 09:42 Chief complaint: SDC Narrative: Rafal is a 74-year-old man who had an EGD and colonoscopy a year ago. Biopsies from his stomach reported metaplasia and he wishes to have surveillance at this time. [facility] Medical History BPH loc w/o ur obs/LUTS History of elevated PSA BPH loc w/o ur obs/LUTS Pneumothorax Hypertension Dyslipidemia Healthy adult Surgical History Hx of hernia repair (~1991) H/O knee surgery Hx of cholecystectomy No pertinent past surgical history Social History marital status: household members: spouse lives independently: Yes occupational status: employed alcohol intake: current substance use type: does not use Meds Home Medications and Allergies Home Medications ?Medication ?Instructions ?Recorded ?Confirmed ?Type azelastine hcl- budesonide 2 squirt intranasal DAILY 10/26/23 06/21/25 History acetaminophen 325 mg capsule 325 mg PO ONCE PRN Pain (Scale 11/29/23 06/21/25 History Score 1-3) aspirin 81 mg tablet,delayed 81 mg PO DAILY 08/13/24 06/21/25 History release carisoprodol 350 mg tablet 350 mg PO BEDTIME PRN 01/01/25 06/21/25 History meloxicam 7.5 mg tablet 7.5 mg PO DAILY PRN 01/01/25 06/21/25 History sildenafil 50 mg tablet 50 mg PO DAILY PRN sexual activity 01/01/25 06/21/25 Rx #10 tabs calcium carbonate (Antacid 200 mg PO BID PRN 04/26/25 06/21/25 History (calcium carbonate)) cholecalciferol (vitamin D3) 50 50 mcg PO DAILY 04/26/25 06/21/25 History mcg (2,000 unit) capsule coenzyme Q10 75 mg capsule (Ultra 75 mg PO DAILY 04/26/25 06/21/25 History CoQ10) magnesium citrate-potassium tab PO 04/26/25 06/21/25 History citrate ER 7.5 mEq tablet,extended release rosuvastatin 5 mg tablet 5 mg PO DAILY 04/26/25 06/21/25 History vitamin B complex 1 tab PO DAILY 04/26/25 06/21/25 History Allergies Allergy/AdvReac Type Severity Reaction Status Date / Time latex AdvReac Mild Rash Verified 06/21/25 14:51 Exam Const General: healthy appearing Assessment & Plan Assessment and plan (1) Gastric intestinal metaplasia: Status: Acute Plan Esophagogastroduodenoscopy Time-Based Coding :: [TOTAL MINUTES] spent with patient and on the chart (including review of chart, obtaining history, exam, reviewing outside data, placing orders, documenting exam and treatment plan, and counseling patient) on [DATE]. [employer] Weight [employer] Document charge(s): No
[2025-08-15 09:43] VITALS: BP 135/75; PULSE 66; RESP 15; TEMP 36.3; O2SAT 97; BMI 23.1
[2025-08-15 10:02] VITALS: BP 96/56; PULSE 66; RESP 17; TEMP 36.4; O2SAT 95
--- NOTE | 2025-08-15 10:02 | PM.OP.EGD ---
Operative Date/Time/Diagnoses Date of procedure: 08/15/25 Time of procedure: 10:02 Pre-op diagnosis: History of gastric metaplasia Post-op diagnosis: same Procedure & Clinicians Study performed: Esophagogastroduodenoscopy Same procedure(s) as scheduled: Yes Surgeon: Judd Martinez Anesthesia Type: MAC +/- Procedure Notes Procedure in detail: Surgeon: Judd Martinez MD Anesthesia: Lore Khan [employer] SAL[employer] A timeout was performed. A bite blocked was placed. The patient was positioned in the left lateral decubitus position. Anesthesia was administered. The endoscope was inserted through the bite block and passed through the esophagus and stomach and into the duodenum. The duodenal mucosa appeared normal. Random biopsies were taken with the cold forceps from the duodenal mucosa. The scope was withdrawn into the duodenal bulb and no abnormalities were seen. The scope was withdrawn into the stomach. There were no obvious abnormalities in the stomach. Random biopsies were taken from the antrum and gastric body with cold forceps. The scope was retroflexed and no clinically significant abnormalities were noted. The scope was withdrawn into the esophagus and no abnormalities were found. The remainder of the esophagus was normal. The scope was withdrawn. The patient was awakened and brought to recovery. Sedation time: 5 minutes Findings: Grossly normal esophagus, stomach and duodenum Post-procedure Disposition: PACU
[2025-08-15 10:08] VITALS: BP 95/55; PULSE 63; RESP 17; O2SAT 95
[2025-08-15 10:12] VITALS: BP 101/57; PULSE 66; RESP 21; O2SAT 96
[2025-08-15 10:16] VITALS: BP 101/56; PULSE 68; RESP 17; TEMP 36.1; O2SAT 95
[2025-08-15 10:20] VITALS: BP 97/57; PULSE 60; RESP 20; TEMP 36.2; O2SAT 96
== END 2025-08-15 10:39 | disposition home or self-care (01) ==
PROVIDERS: PCP Family Medicine; Referring Provider Family Medicine; Visit Provider Surgery
PROC: 0DJ08ZZ Inspection of Upper Intestinal Tract, Via Natural or Artificial Opening Endoscopic (ICD-10-PCS; CPT 43239; principal; 2025-08-15 10:30)
DX: Z87.19 Personal history of other diseases of the digestive system (principal)
CPT/HCPCS: 43239; J2704

== ENCOUNTER → 2025-08-21 13:00 | Outpatient (CLI) | payer MEDICARE, SELFPAY ==
[2025-08-21 14:54] LABS: Prostate Specific Antigen 5.81 ng/mL (0.10-4.00)
== END ==
PROVIDERS: PCP Family Medicine; Referring Provider Family Medicine; Visit Provider Urology
DX: C61 Malignant neoplasm of prostate (principal)
CPT/HCPCS: 36415; 84153

== ENCOUNTER → 2025-09-12 14:08 | Outpatient (CLI) | payer MEDICARE, SELFPAY ==
[2025-09-12 14:44] LABS: Hematocrit 42.0 % (41-53); Hemoglobin 14.1 g/dL (13.5-17.5); Mean Corpuscular HGB Conc 33.7 % (30-36); Mean Corpuscular Hemoglobin 31.1 PG (26-34); Mean Corpuscular Volume 92.5 fL (80-100); Platelet Count 268 X10^3/uL (150-400)
[2025-09-12 15:06] LABS: Alanine Aminotransferase 24 IU/L (<50); Albumin 4.3 g/dL (3.5-5.0); Albumin Globulin Ratio 1.5 (1.0-2.8); Alkaline Phosphatase 64 U/L (38-126); Blood Urea Nitrogen 19 mg/dL (9-20); Calcium 10.1 mg/dL (8.4-10.2); Carbon Dioxide 26 mmol/L (22-32); Chloride 105 mmol/L (98-107); Cholesterol 131 mg/dL (140-199); Estimated Glomerular Filt Rate > 60 mL/min (>60); Globulin 2.8 g/dL (1.7-4.1); Glucose 132 mg/dL (70-99); HDL Cholesterol 61 mg/dL (40-60); HEMOLYSIS < 15 (0-50); Potassium 3.9 mmol/L (3.4-5.1); Sodium 139 mmol/L (137-145); Total Protein 7.1 g/dL (6.3-8.2); Triglycerides 104 mg/dL (35-150)
[2025-09-12 15:27] LABS: Free T4, Direct Thyroxine 1.00 ng/dL (0.78-2.19)
[2025-09-12 15:41] LABS: Thyroid Stimulating Hormone 1.27 uIU/mL (0.47-4.68)
== END ==
PROVIDERS: PCP Family Medicine; Referring Provider Family Medicine; Visit Provider Family Medicine
DX: Z00.00 Encounter for general adult medical examination without abnormal findings (principal); E11.65 Type 2 diabetes mellitus with hyperglycemia; E78.00 Pure hypercholesterolemia, unspecified; I25.10 Atherosclerotic heart disease of native coronary artery without angina pectoris
CPT/HCPCS: 36415; 80053; 80061; 80076; 84439; 84443; 85027